=== PATIENT | male | born 1980 | race Caucasian/White ===

== ENCOUNTER 2022-01-03 10:30 | Outpatient (CLI) | payer OTHER, SELFPAY ==
[2022-01-03 10:58] LABS: Hematocrit 46.9 % (40.0-54.0); Hemoglobin 15.4 g/dL (14.0-18.0); Mean Corpuscular HGB Conc 32.8 g/dL (32.0-36.0); Mean Corpuscular Hemoglobin 28.5 pg (27.0-31.0); Mean Corpuscular Volume 86.9 fL (78.0-102.0); Mean Platelet Volume 8.5 fl (8.7-11.0); Platelet Count Result 235 K/mm3 (150-420); Red Cell Distribution Width 12.1 % (11.6-14.4); White Blood Count 13.6 K/mm3 (4.8-10.8)
[2022-01-03 11:12] LABS: Total Cells Counted 100
[2022-01-03 11:13] LABS: Band Neutrophils Percent 1 % (0-6); Eosinophils Absolute Manual 1.49 K/mm3 (0.02-0.5); Eosinophils Percent Manual 11 % (1-6); Lymphocytes Absolute Manual 1.76 K/mm3 (1.1-4.5); Lymphocytes Percent Manual 13 % (18-44); Monocytes Absolute Manual 0.95 K/mm3 (0.1-0.90); Monocytes Percent Manual 7 % (3-9); Neutrophils Absolute Manual 9.38 K/mm3 (1.3-6.7); Neutrophils Percent Manual 68 % (46-73); Platelet Estimate Adequate (Adequate)
[2022-01-03 11:35] LABS: Alanine Aminotransferase 228 U/L (16-63); Albumin Level 3.8 g/dL (3.4-5.0); Alkaline Phosphatase 277 U/L (46-116); Anion Gap 10 mmol/L (8-16); Aspartate Amino Transferase 101 U/L (15-37); Bilirubin,Total 2.6 mg/dL (0.00-1.00); Blood Urea Nitrogen 5 mg/dL (7-18); Calcium 9.1 mg/dL (8.5-10.1); Carbon Dioxide 28 mmol/L (21-32); Chloride 102 mmol/L (98-108); Estimated Glomerular Filt Rate > 60; Glucose 108 mg/dL (70-99); Osmolality Calculated 288 mOsm/kg (285-295); Potassium 3.8 mmol/L (3.5-5.1); Sodium 140 mmol/L (136-145)
[2022-01-03 13:29] LABS: Hemoglobin A1C 5.7 % (<5.7)
[2022-01-06 18:51] LABS: Hepatitis A Antibody IgM Nonreactive; Hepatitis B Core Antibody Nonreactive (Nonreactive); Hepatitis B Surface Antigen Nonreactive (Nonreactive); Hepatitis C Signal to Cutoff 0.01 ratio (<1.00); Hepatitis C Virus Antibody Nonreactive (Nonreactive)
== END 2022-01-03 10:31 | disposition home or self-care (01) ==
LOC: CHSLAB 10:42
PROVIDERS: PCP Family Medicine; Visit Provider Nurse Practitioner Family
DX: L03.90 Cellulitis, unspecified (principal); T63.304A Toxic effect of unspecified spider venom, undetermined, initial encounter; R73.9 Hyperglycemia, unspecified; R94.5 Abnormal results of liver function studies
CPT/HCPCS: 36415; 80053; 80074; 83036; 85025; 87040

== ENCOUNTER 2022-01-04 09:25 | Outpatient (CLI) | payer OTHER, SELFPAY ==
[2022-01-04 09:39] LABS: Hematocrit 45.4 % (40.0-54.0); Hemoglobin 14.7 g/dL (14.0-18.0); Mean Corpuscular HGB Conc 32.4 g/dL (32.0-36.0); Mean Corpuscular Hemoglobin 28.3 pg (27.0-31.0); Mean Corpuscular Volume 87.5 fL (78.0-102.0); Mean Platelet Volume 8.1 fl (8.7-11.0); Platelet Count Result 249 K/mm3 (150-420); Red Blood Count 5.19 M/mm3 (4.70-6.10); Red Cell Distribution Width 12.1 % (11.6-14.4)
[2022-01-04 09:42] LABS: Appearance Urine Clear (Clear); Bilirubin Urine 2+ (Negative); Blood Urine Negative (Negative); Glucose Urine UA Negative (Negative); Ketones Urine Negative (Negative); Leukocyte Esterase Ur Negative (Negative); Nitrate Urine Negative (Negative); Protein Urine Negative (Negative)
[2022-01-04 09:45] LABS: White Blood Count 25.8 K/mm3 (4.8-10.8)
[2022-01-04 09:55] LABS: Alanine Aminotransferase 169 U/L (16-63); Albumin Level 3.1 g/dL (3.4-5.0); Alkaline Phosphatase 269 U/L (46-116); Anion Gap 9 mmol/L (8-16); Aspartate Amino Transferase 42 U/L (15-37); Bilirubin,Total 3.9 mg/dL (0.00-1.00); Blood Urea Nitrogen 9 mg/dL (7-18); Calcium 8.6 mg/dL (8.5-10.1); Carbon Dioxide 26 mmol/L (21-32); Chloride 101 mmol/L (98-108); Estimated Glomerular Filt Rate > 60; Glucose 142 mg/dL (70-99); Osmolality Calculated 282 mOsm/kg (285-295); Potassium 4.3 mmol/L (3.5-5.1); Sodium 136 mmol/L (136-145)
[2022-01-04 09:57] LABS: Band Neutrophils Percent 1 % (0-6); Eosinophils Absolute Manual 1.54 K/mm3 (0.02-0.5); Eosinophils Percent Manual 6 % (1-6); Lymphocytes Absolute Manual 1.03 K/mm3 (1.1-4.5); Lymphocytes Percent Manual 4 % (18-44); Monocytes Absolute Manual 1.03 K/mm3 (0.1-0.90); Monocytes Percent Manual 4 % (3-9); Neutrophils Absolute Manual 22.18 K/mm3 (1.3-6.7); Neutrophils Percent Manual 85 % (46-73); Total Cells Counted 100
[2022-01-04 09:58] LABS: Add Urine Microscopic? YES; Color Urine Dark Orange (Yellow); RBC Urine None seen /hpf (0-2); WBC Urine None seen /hpf (0-3)
[2022-01-04 09:59] LABS: Bacteria Urine Trace /hpf
[2022-01-04 10:14] LABS: Platelet Estimate Adequate (Adequate)
== END 2022-01-04 09:26 | disposition home or self-care (01) ==
LOC: CHSLAB 09:28
PROVIDERS: PCP Family Medicine; Visit Provider Nurse Practitioner Family
DX: L03.90 Cellulitis, unspecified (principal); T63.301A Toxic effect of unspecified spider venom, accidental (unintentional), initial encounter
CPT/HCPCS: 36415; 80053; 80074; 81001; 85025; 87086

== ENCOUNTER 2022-01-04 09:55 | Emergency (ER) | payer OTHER, SELFPAY ==
[2022-01-04 10:00] VITALS: BP 128/90; PULSE 90; RESP 18; TEMP 37.5; O2SAT 97
--- NOTE | 2022-01-04 10:31 | ED.SKABFB ---
HPI - Skin/Abscess/Foreign Bdy General Chief complaint: Skin/Abscess/Foreign Body Stated complaint: spider bite, high WBC Time Seen by Provider: 01/04/22 10:28 Source: patient and RN notes reviewed Mode of arrival: ambulatory Limitations: no limitations History of Present Illness HPI narrative: Patient states that he he received a spider bite 4 days ago. He had no symptoms from it and then he began having some redness surrounding it on Monday 3 days ago. He went to his primary care physician on Monday and was started on clindamycin and doxycycline. For today he broke out in a worse rash but states he feels just fine. He has no pain from the spider bite. He only has a new worsening rash that is on both arms down his body on his legs. He had repeat blood work done showing that his white count has increased significantly. MD complaint: abscess/boil Onset (ago): day(s) (3) Location: LUE Severity: severe Quality: aching, dull and constant Pain Consistency: constant Associated symptoms: denies other symptoms Treatments prior to arrival: antibiotic Related Data Home Medications Medication Instructions Recorded Confirmed clindamycin HCl 300 mg capsule 300 mg PO QID 01/04/22 01/04/22 doxycycline monohydrate 100 mg 100 mg PO BID 01/04/22 01/04/22 capsule Allergies Allergy/AdvReac Type Severity Reaction Status Date / Time Penicillins Allergy Anaphylaxis Verified 01/04/22 10:13 Review of Systems Review of Systems: All systems reviewed & are unremarkable except as noted in HPI and below PMFSH Past Medical History Medical History (Updated 01/04/22 @ 10:46 by Domingo Mistry MD) No active medical problems Exam Const: General: healthy appearing, no acute distress and alert Nutritional Appearance: well nourished Orientation/consciousness: patient oriented x3 Limitations: no limitations HENMT: Head: normal to inspection Ears: external ears normal Eyes: Conjunctivae: conjunctivae normal Pupils: Equal, round and reactive pupils present EOM: EOMs intact bilaterally Neck: Neck: normal visual inspection Resp: Effort & Inspection: normal respiratory effort Auscultation: clear to auscultation bilaterally Cardio: Rate: regular rate Rhythm: regular rhythm GI: GI Palp: Yes Soft to palpation and No Tenderness to palpation present (GI) Auscultation: normal bowel sounds Back/Spine/Pelvis: Cervical Spine: cervical ROM normal Thoracic/Lumbar Spine: thoraco-lumbar ROM normal Skin: General skin exam: normal color Rashes: rashes noted ( Area associated with the spider bite has no confluence and is nontender.) urticaria diffuse full body color blanching and red Neuro: General: patient oriented x3, moves all extremities, no focal motor deficits and CN's II-XI intact bilaterally Speech: normal speech Gait exam (Neuro): Normal gait present Extrem: General: normal to inspection and no clubbing, cyanosis or edema Psych: Mental Status: mental status grossly normal Affect: normal affect Attitude: cooperative Course Course Emergency Course: I discussed the case with Dr. Richard his primary care physician to let him know that there is no tenderness associated with the spider bite and the patient feels normal without any complaints except for the rash. I am going to discontinue the clindamycin and doxycycline. He will be started on Keflex. Vital Signs Vital signs: Vital Signs Temperature 37.5 C 01/04/22 10:00 Pulse Rate 90 01/04/22 10:00 Respiratory Rate 18 01/04/22 10:00 Blood Pressure 128/90 01/04/22 10:00 Pulse Oximetry 97 01/04/22 10:00 Oxygen Delivery Room Air 01/04/22 10:00 Temperature 37.5 C 01/04/22 10:00 Pulse Rate 90 01/04/22 10:00 Respiratory Rate 18 01/04/22 10:00 Blood Pressure 128/90 01/04/22 10:00 Pulse Oximetry 97 01/04/22 10:00 Oxygen Delivery Room Air 01/04/22 10:00 Discharge Plan Discharge Clinical Impression: Allergic reaction caused
== END 2022-01-04 10:58 | disposition home or self-care (01) ==
PROVIDERS: Emergency Provider Emergency Medicine; PCP Family Medicine
DX: T78.40XA Allergy, unspecified, initial encounter (principal)
CPT/HCPCS: 99283